=== PATIENT | male | born 1955 | race Caucasian/White ===

== ENCOUNTER 2023-07-19 23:55 | Inpatient (IN) | payer BC, MEDICARE, SELFPAY ==
[2023-07-19 23:57] VITALS: BP 226/137; PULSE 114; RESP 28; TEMP 36.5; O2SAT 92; BMI 29.0
[2023-07-20] VITALS (18 sets, daily range): BP systolic 132–186; BP diastolic 74–106; PULSE 93–120; RESP 16–36; TEMP 36.1–37.1; O2SAT 86–96; BMI 28.2
--- NOTE | 2023-07-20 00:18 | RAD_ITS ---
STUDY: X-RAY CHEST REASON FOR EXAM: Male, 67 years old. cough TECHNIQUE: PA and lateral views of the chest. COMPARISON: None. FINDINGS: Surgical clips along the lower neck. Possible mild emphysematous changes in the mid upper lung armenta, left more than right. Otherwise the lungs are clear and expanded. There is no demonstrated pleural abnormality. Normal size heart. Normal mediastinum and diamond. Normal visualized pulmonary arteries. There is atherosclerotic calcification of the aortic arch with tortuosity. There are diffuse degenerative changes of the visualized thoracic spine. Normal visualized ribs, clavicles, and shoulders. There is no demonstrated abnormality of the visualized soft tissue structures of the upper abdomen. RAD/Chest PA and Lateral IMPRESSION: Possible underlying emphysema, otherwise no acute cardiac pulmonary disease. Electronically Signed: Shelli Mathur MD at 1:04 EST ,
[2023-07-20] MEDS: Albuterol 2.5 MG/3 ML VIAL.NEB. INHALATION (00:28)
[2023-07-20] MEDS: Ipratropium/Albuterol Sulfate 3 ML AMPUL.NEB INHALATION ×6 (00:28→23:21)
[2023-07-20 00:33] LABS: Absolute Lymphocyte Count 0.93 X10^3/uL (0.83-4.51); Absolute Neutrophil Count 8.6 X10^3/uL (2.0-7.7); Basophil# 0.11 X10^3/uL; Eosinophil# 0.66 X10^3/uL; Eosinophils% 5.9 % (0-5); Hematocrit 50.3 % (40-54); Hemoglobin 15.8 g/dL (13.0-16.5); Lymphocyte # 0.93 X10^3/ul (0.83-4.51); Lymphocyte % 8.3 % (19-41); Mean Corp Hgb Conc 31.4 g/dL (32-36); Mean Corpuscular Hgb 28.8 pg (27.0-32.0); Mean Corpuscular Volume 91.8 fL (80-94); Monocyte# 0.95 X10^3/uL; Monocyte% 8.4 % (0-10); NRBC Flagged by Analyzer 0 % (0-5); Neutrophil # 8.56 X10^3/uL (2.7-7.7); Platelet Count 268 K/mm3 (150-450); RBC Distribution Width CV 12.6 % (11.6-14.6); RBC Distribution Width SD 42.5 fl (35.1-43.9); Red Blood Count 5.48 M/mm3 (4.6-6.2); White Blood Count 11.3 K/mm3 (4.4-11.0)
[2023-07-20] MEDS: MethylPREDNISolone 125 MG/2 ML Vial IV (00:40)
[2023-07-20 00:47] LABS: Anion Gap 2 (5-15); BUN 18 mg/dL (7-18); BUN/Creat Ratio 21.1 RATIO (10-20); Calcium,Total 9.7 mg/dL (8.5-10.1); Chloride 112 mmol/L (98-107); Creatinine, Serum 0.85 mg/dL (0.70-1.30); EST Glomerular Filtration Rate 95 mL/min (>60); Est Glom Filt Rate - Afr Amer 115 mL/min (>60); Glucose 109 mg/dL (74-106); Magnesium 2.4 mg/dL (1.6-2.6); Potassium 3.9 mmol/L (3.5-5.1); Sodium Level 144 mmol/L (136-145)
--- NOTE | 2023-07-20 00:52 | CPS ---
x1 Albuterol given to pt. in ER as well
[2023-07-20 00:55] LABS: BNP,B-Type NATRIURETIC PEPTIDE 21.2 pg/mL (0-100)
[2023-07-20] MEDS: Labetalol (Prefilled) 20 MG/4 ML 10 MG IV ×2 (01:28→03:37)
[2023-07-20] MEDS: 0.9% Normal Saline (1000mL) 1,000 ML 999 ML IV (01:30)
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
[2023-07-20] MEDS: Oseltamivir Phosphate 75 MG Capsule PO ×3 (02:44→21:40)
--- NOTE | 2023-07-20 03:27 | HP.PCM.HOS_ITS ---
[facility] - General General Date of Admission: 07/20/23 Date of Service: 07/20/23 Chief Complaint: 1 week symptoms of shortness of breath, cough and wheezing. HPI Narrative CHARLES OWENS, is a 67 M with history of COPD came to ED with shortness of breath and hypoxia. He stated that he started with short of breath initially dyspnea on exertion about 7 days ago and then progressed to dyspnea at rest for last 3 to 4 days. Patient is coughing clear phlegm thick in consistency along with pleuritic chest pain bilaterally predominantly on coughing. Patient also has wheezing. He states he has history of COPD and is on albuterol inhaler but not on maintenance inhaler or oxygen or BiPAP/CPAP. In ED was tested positive for influenza A. Chest x-ray individually reviewed and shows no acute infiltrate/consolidation but underlying emphysema. In ED, patient was tachycardic heart rate in 120s blood pressure high systolic 226/137, tachypneic and hypoxic 89% on room air and required 2 L of oxygen. Patient given labetalol, Tamiflu, IV Solu-Medrol, DuoNeb and further admitted [facility] Home Medications albuterol sulfate 90 mcg/actuation aerosol inhaler 2 puff inhalation Q4H PRN wh eezing or sob 07/20/23 [History Last Taken Unknown] amlodipine 5 mg tablet 5 mg PO DAILY 07/20/23 [History Last Taken Unknown] fenofibrate nanocrystallized 145 mg tablet 145 mg PO DAILY 07/20/23 [History Last Taken Unknown] lisinopril 20 mg tablet 20 mg PO DAILY 07/20/23 [History Last Taken Unknown] metoprolol succinate 50 mg tablet,extended release 24 hr 50 mg PO DAILY 07/20/23 [History Last Taken Unknown] Allergy/AdvReac Type Severity Reaction Status Date / Time Penicillins Allergy Severe Anaphylaxis Verified 07/19/23 23:57 Social History Smoking Status: Former smoker ROS ROS Narrative Constitutional: Reports fatigue and weakness. Subjective fever and chills. HEENT: History of throat cancer status post muscular graft/flap. Reports systems reviewed and no addt'l complaints, except as documented Respiratory/Chest: Bilateral wheezing at rest as described in HPI CVS: Pleuritic chest pain bilaterally feels chest tightness Gastrointestinal: Denies coffee ground emesis, hematemesis or vomiting Genitourinary: Denies burning urination or new urinary tract symptoms Musculoskeletal: Denies acute joint pain or limited range of motion. No acute injury Neurologic: Denies seizure-like symptoms. skin: No ulcer. No rash Endocrinology: Reports systems reviewed and no addt'l complaints, except as documented Hematologic/Lymphatic: Reports systems reviewed and no addt'l complaints, except as documented Rest 14 ROS are negative except as mentioned in HPI Vital Signs Vital Signs Vital Signs: 07/19/23 23:57 07/20/23 00:44 07/20/23 00:47 Temperature 97.7 F L Temperature Source Temporal Pulse Rate 114 H Respiratory Rate 28 H Respiratory Effort Short of Breath Short of Breath Respiratory Depth Shallow Respiratory Pattern Tachypnea Blood Pressure 226/137 H Blood Pressure Mean 166 Pulse Ox 92 Oxygen Delivery Method Room Air Room Air Oxygen Flow Rate (L/min) 07/20/23 00:28 07/20/23 01:31 07/20/23 01:31 Temperature 97.7 F L 97.7 F L Temperature Source Oral Oral Pulse Rate 120 H 100 95 Respiratory Rate 22 H 29 H 30 H Respiratory Effort Respiratory Depth Respiratory Pattern Tachypnea Blood Pressure 172/106 H 172/106 H Blood Pressure Mean 128 128 Pulse Ox 89 89 Oxygen Delivery Method Room Air Room Air Oxygen Flow Rate (L/min) 07/20/23 01:34 07/20/23 02:19 07/20/23 02:19 Temperature 97.7 F L 97.7 F L Temperature Source Temporal Temporal Pulse Rate 103 H 103 H Respiratory Rate 36 H 28 H Respiratory Effort Respiratory Depth Respiratory Pattern Blood Pressure 186/103 H 186/103 H Blood Pressure Mean 130 130 Pulse Ox 93 96 96 Oxygen Delivery Method Nasal Cannula Nasal Cannula Nasal Cannula Oxygen Flow Rate (L/min) 2 2 2 07/20/23 02:34 Temperature 97.7 F L Temperature Source Pulse Rate 103 H Respiratory Rate 26 H Respiratory Effort Respiratory Depth Respiratory Pattern Blood Pressure 186/103 H Blood Pressure Mean 130 Pulse Ox 96 Oxygen Delivery Method Oxygen Flow Rate (L/min) Weight Weight: 220 lb Body Mass Index (BMI) 29.0 Physical Exam Narrative General: Alert, Oriented x3, Cooperative HEENT: Atraumatic, PERRLA, EOMI, Normocephalic Oral: Muscular flap graft on left lateral buccal cavity/tongue. No acute finding. Neck: Supple, No JVD, Negative Carotid Bruits Chest wall/Lungs: Air entry severely diminished bilaterally. Bilateral wheezing. Tachypnea and hypoxia. MCKINLEY present Cardiovascular: Sinus tachycardia, Normal S1, Normal S2, No M/G/R Abdomen: Bowel Sounds Present, Soft, Non Tender, Non-Distended : No dysuria. No renal angle tenderness. No suprapubic tenderness. Extremities: No edema, Capillary Refill Less than 3 Seconds Skin: No rashes, No breakdown Musculoskeletal: No Tenderness to Palpation of Joints or Extremities Neurological: Cranial nerves II-XII grossly intact, DTR 2+/4. No acute focal neurological deficit. Psych/Mental Status: Normal Affect, Appropriate. Results Lab / Micro Data 07/20/23 00:07 07/20/23 00:07 Labs: Laboratory Results - last 24 hr 07/20/23 00:07: WBC 11.3 H, RBC 5.48, Hgb 15.8, Hct 50.3, MCV 91.8, MCH 28.8, MCHC 31.4 L, RDW Std Deviation 42.5, RDW Coeff of Eva 12.6, Plt Count 268, MPV 9.0, Immature Gran % (Auto) 0.400, Neut % (Auto) 76.0 H, Lymph % (Auto) 8.3 L, [place] % (Auto) 8.4, Eos % (Auto) 5.9 H, Baso % (Auto) 1.0, Absolute Neuts (auto) 8.6 H, Absolute Lymphs (auto) 0.93, Nucleated RBC % 0, Sodium 144, Potassium 3.9, Chloride 112 H, Carbon Dioxide 30.0, Anion Gap 2 L, BUN 18, Creatinine 0.85, Estim Creat Clear Calc 104.80, Est GFR (MDRD) Af Amer 115, Est GFR (MDRD) Non-Af 95, BUN/Creatinine Ratio 21.1 H, Glucose 109 H, Calcium 9.7, Magnesium 2.4, B-Natriuretic Peptide 21.2 Micro: Microbiology 07/20/23 00:45 Mucosa - Nose SARS-CoV-2, Influenza & RSV (PCR) - Final Influenzae A Imaging Radiology Impression Chest X-Ray 07/20/23 00:18 IMPRESSION: Possible underlying emphysema, otherwise no acute cardiac pulmonary disease. Electronically Signed: Shelli Mathur MD at 1:04 EST , Assessment & Plan Assessment/Plan (1) COPD exacerbation: (2) Influenza A: PLAN: Plan This is 67-year-old gentleman being admitted for fever, shortness of breath, dyspnea, hypoxia and tachypnea consistent with COPD exacerbation secondary to influenza A 1. COPD exacerbation due to influenza A bronchitis: Patient is being admitted on [facility] floor as an observation status. Mild hypoxia on 2 L of oxygen. Patient is being managed on scheduled bronchodilator, IV Solu-Medrol, Mucinex, incentive spirometry and Pep. Started on Tamiflu in ED and continued. Zithromax oral. Patient is planned for medication in 2 days 2. Hypertensive urgency: BP was 226/136. Heart rate 114. IV hydralazine 10 mg as needed ordered. Patient on lisinopril 20 mg daily, increase to 40 mg daily and metoprolol succinate 50 mg daily, amlodipine 5 mg daily, continued. Denies history of CAD or DE. 2 serial troponins ordered to rule out DE. Twelve-lead EKG ordered. 3. Dyslipidemia: Patient on fenofibrate continued. 4. History of throat cancer status post muscular flap on left lateral buccal and tongue area: Patient denies any aspiration. He is not on any chemotherapy. Former smoker. DVT prophylaxis high risk: Lovenox 40 mg subcu daily. Living will/advanced directive/end of life care: Patient does not have living will or advanced directive. His is power of assistant district attorney for health. After discussion of benefits/risks procedures involved with full code, DNR CC arrest and DNR CC, the patient opted that he was told that he cannot get intubation because of throat cancer and muscular flap. Patient and his send he wants CPR but no intubation or ventilator but I tried to convince that this is not the option as CPR goes along with intubation or ventilator and possible options are full code, DNR CC arrest with intubation or without intubation and DNR CC. They understood and opted for full code. Patient does want artificial life support including intubation, tube feed, ventilator and/chest compression, central venous catheter, vasopressor and DC shock if needed Total time spent in [id number] encounter in discussion of advanced directive 17 minutes. Microbiology Past 72 Hours 07/20/23 00:45 Mucosa - Nose SARS-CoV-2, Influenza & RSV (PCR) - Final Influenzae A Laboratory Results 07/20/23 00:07: WBC 11.3 H, RBC 5.48, Hgb 15.8, Hct 50.3, MCV 91.8, MCH 28.8, MCHC 31.4 L, RDW Std Deviation 42.5, RDW Coeff of Eva 12.6, Plt Count 268, MPV 9.0, Immature Gran % (Auto) 0.400, Neut % (Auto) 76.0 H, Lymph % (Auto) 8.3 L, [place] % (Auto) 8.4, Eos % (Auto) 5.9 H, Baso % (Auto) 1.0, Absolute Neuts (auto) 8.6 H, Absolute Lymphs (auto) 0.93, Nucleated RBC % 0 , Sodium 144, Potassium 3.9, Chloride 112 H, Carbon Dioxide 30.0, Anion Gap 2 L, BUN 18, Creatinine 0.85, Estim Creat Clear Calc 104.80, Est GFR (MDRD) Af Amer 115, Est GFR (MDRD) Non-Af 95, BUN/Creatinine Ratio 21.1 H, Glucose 109 H, Calcium 9.7, Magnesium 2.4, B-Natriuretic Peptide 21.2 Charges/Coding Visit Charges Inpatient E&M: 47897 Init Hosp L3 Procedures Hospitalists Procedures: 62121 Advncd Care Plan 30 Min
[2023-07-20 04:32] LABS: Absolute Lymphocyte Count 0.28 X10^3/uL (0.83-4.51); Absolute Neutrophil Count 12.7 X10^3/uL (2.0-7.7); Basophil# 0.08 X10^3/uL; Basophil% 0.6 % (0-1); Eosinophil# 0.05 X10^3/uL; Eosinophils% 0.4 % (0-5); Hematocrit 47.5 % (40-54); Lymphocyte # 0.28 X10^3/ul (0.83-4.51); Lymphocyte % 2.1 % (19-41); Mean Corp Hgb Conc 31.6 g/dL (32-36); Mean Corpuscular Hgb 28.8 pg (27.0-32.0); Mean Corpuscular Volume 91.3 fL (80-94); Mean Platelet Vol. 8.7 fl (6.2-12.0); Monocyte# 0.18 X10^3/uL; Monocyte% 1.3 % (0-10); NRBC Flagged by Analyzer 0 % (0-5); Neutrophil % 95.1 % (47-70); POSITIVE DIFFERENTIAL YES; Platelet Count 240 K/mm3 (150-450); RBC Distribution Width CV 12.7 % (11.6-14.6); White Blood Count 13.4 K/mm3 (4.4-11.0)
[2023-07-20] MEDS: guaiFENesin/D-Methorphan TAB.SR.12H 1 TABLET PO ×3 (04:55→21:39)
[2023-07-20 05:03] LABS: Anion Gap 3 (5-15); BUN 17 mg/dL (7-18); Calcium,Total 9.1 mg/dL (8.5-10.1); Chloride 109 mmol/L (98-107); Creatinine, Serum 0.81 mg/dL (0.70-1.30); EST Glomerular Filtration Rate 101 mL/min (>60); Est Glom Filt Rate - Afr Amer 122 mL/min (>60); Estimated Creatinine Clearance 108.59 ml/min; Glucose 154 mg/dL (74-106); Sodium Level 139 mmol/L (136-145)
[2023-07-20 05:07] LABS: Troponin-I HS 12 pg/mL (3.0-78.0)
[2023-07-20] MEDS: 0.9% Saline Lock 10 ML Syringe IV (05:19)
--- NOTE | 2023-07-20 07:22 | PN.HOSP_ITS ---
Hospitalist Note The patient is a 67 y/o M w/ PMHx: Former tobacco use, COPD, HTN, HLD who presents to the [facility] ED on 07/20/23 with history of dyspnea, worse with exertion as well as at rest with onset of coughing with a clear thick phlegm and pleuritic chest discomfort bilaterally worse with coughing with wheezing not improving prompting eventual ED evaluation. Workup in the ED included CBC with a BC 11.3, human 15.8, platelet 268 with left shift, BMP with glucose 109 otherwise not marked appearing, magnesium 2.4, BNP 21.2, rapid SARS COVID/influenza/RSV PCR with positive influenza A, chest x-ray with emphysematous changes with otherwise no acute cardiopulmonary findings. In the ED patient ministered IV fluids, Tamiflu initiated, administered Solu-Medrol 125 mg IV x 1 as well as DuoNeb therapies. Repeat labs 07/20/2023 with CBC with WC 13.4, and 115, platelet 240 with left shift and lymphopenia, BMP with chloride 109, glucose 154 with repeat troponin pending. Patient notes that since admission he does feel improved with less coughing and less wheezing but still markedly fatigued. Physical Examination: General: Awake, alert, oriented x 3 and cooperative, seated upright in PCU bedside chair, fatigued appearing. Skin: Normal color, normal turgor, no icterus, no cyanosis except occasional staged ecchymoses, abrasion. HEENT: AT/NC, EOMI, PERRLA, mildly dry MM. Lungs: Diminished, greater bases, mildly increased respiratory rate but no distress, occasional end expiratory wheeze but suspect improved from previous. Heart: Regular rate and rhythm; no gallop, rub audible. Abdomen: Soft, NTTP, ND, normal BS. Extremities: No cyanosis, clubbing, or edema. Neurological: Patient awake, alert, oriented as noted, cognitive function intact; pupils equally reactive to light and accommodation, cranial nerves II- XII grossly normal, moving all 4 extremities, no focal deficits, strength improved, moderately to severely globally decreased. Psychiatric: Affect appears flat, fatigued, no acute evidence of depressive or anxiety feelings. #1. Acute Hypoxia secondary to Acute on Chronic COPD exacerbation secondary to acute viral syndrome influenza A: CXR w/ chronic changes. Admitted to PCU, will maintain on oxygen with wean as tolerated to room air, continue ATC duonebs, PRN albuterol, IV methylprednisolone, continue Tamiflu regimen, HOB, IS parameters, currently maintained also on concurrent azithromycin with plan 5 doses initiated upon admission. #2. Hypertension: Continue home regimen including amlodipine, lisinopril, metoprolol, PRN hydralazine. #3. Hyperlipidemia: We will continue patient on fenofibrate regimen. #4. Former tobacco use: Encourage continued tobacco cessation. #5. DVT prophylaxis: Lovenox. #6. CODE STATUS: Full code. Procedures Hospitalists Procedures: Other Procedure - See Report ([id number]=Iunjdk to bill, admitted same day.)
[2023-07-20 08:00] LABS: Troponin-I HS 12 pg/mL (3.0-78.0)
[2023-07-20] MEDS: Aspirin 81 MG TAB.CHEW 162 MG PO (09:40)
[2023-07-20] MEDS: Enoxaparin 40 MG/0.4 ML Syringe SC (09:40)
[2023-07-20] MEDS: amLODIPine 5 MG Tablet PO (09:41)
[2023-07-20] MEDS: Metoprolol(XL)Succ 50 MG Tablet PO (09:41)
[2023-07-20] MEDS: Fenofibrate 145 MG Tablet PO (09:41)
[2023-07-20] MEDS: Azithromycin 250 MG Tablet 500 MG PO (09:42)
[2023-07-20] MEDS: Lisinopril 40 MG Tablet PO (09:42)
[2023-07-20 11:03] LABS: Troponin-I HS 11 pg/mL (3.0-78.0)
[2023-07-21] MEDS: Ipratropium/Albuterol Sulfate 3 ML AMPUL.NEB INHALATION ×2 (03:10→07:13)
[2023-07-21 03:11] VITALS: PULSE 90; RESP 18
[2023-07-21 05:46] VITALS: BP 120/105; PULSE 85; RESP 16; TEMP 36.4; O2SAT 95
[2023-07-21 06:17] VITALS: O2SAT 92
--- NOTE | 2023-07-21 06:17 | PN.HOSP_ITS ---
Reason for Visit Reason for Visit: Diagnoses Influenza due to other identified influenza virus with other respiratory manife stations (07/20/23) Chronic obstructive pulmonary disease with (acute) exacerbation (07/20/23) Objective Data Objective Data Vital Signs: Vital Signs Temp Pulse Resp BP Pulse Ox O2 Del Method O2 Flow Rate 97.5 F L 85 16 120/105 H 95 Room Air 2 07/21/23 05:46 07/21/23 05:46 07/21/23 05:46 07/21/23 05:46 07/21/23 05:46 07/21/23 06:00 07/20/23 23:23 Oxygen Flow Rate (L/min) 2 Oxygen Delivery Method Room Air Weight: 213 lb 14.4 oz Body Mass Index (BMI) 28.2 Intake & Output: Intake and Output for Last 24 Hours 07/19/23 07/20/23 07/21/23 23:59 23:59 23:59 Intake Total 1000 / 1000 Balance 1000 / 1000 Lab / Micro Data 07/20/23 04:24 07/20/23 04:24 Labs: Laboratory Results - last 24 hr 07/20/23 06:35: Troponin I High Sens 12 07/20/23 10:05: Troponin I High Sens 11 Micro: Microbiology 07/20/23 00:45 Mucosa - Nose SARS-CoV-2, Influenza & RSV (PCR) - Final Influenzae A Physical Exam Narrative Physical Examination: General: Awake, alert, oriented x 3 and cooperative, seated upright in PCU b edside chair, fatigued appearing. Skin: Normal color, normal turgor, no icterus, no cyanosis except occasional staged ecchymoses, abrasion. HEENT: AT/NC, EOMI, PERRLA, mildly dry MM. Lungs: Diminished, greater bases, mildly increased respiratory rate but no distress, occasional end expiratory wheeze but suspect improved from previous. Heart: Regular rate and rhythm; no gallop, rub audible. Abdomen: Soft, NTTP, ND, normal BS. Extremities: No cyanosis, clubbing, or edema. Neurological: Patient awake, alert, oriented as noted, cognitive function intact; pupils equally reactive to light and accommodation, cranial nerves II- XII grossly normal, moving all 4 extremities, no focal deficits, strength improved, moderately to severely globally decreased. Psychiatric: Affect appears flat, fatigued, no acute evidence of depressive or anxiety feelings. Assessment & Plan Assessment/Plan PLAN: Plan The patient is a 67 y/o M w/ PMHx: Former tobacco use, COPD, HTN, HLD who presents to the [facility] ED on 07/20/23 with history of dyspnea, worse with exertion as well as at rest with onset of coughing with a clear thick phlegm and pleuritic chest discomfort bilaterally worse with coughing with wheezing not improving prompting eventual ED evaluation. #1. Acute Hypoxia secondary to Acute on Chronic COPD exacerbation secondary to acute viral syndrome influenza A: CXR w/ chronic changes. Admitted to PCU, will maintain on oxygen with wean as tolerated to room air, continue ATC duonebs, PRN albuterol, IV methylprednisolone, continue Tamiflu regimen, HOB, IS parameters, currently maintained also on concurrent azithromycin with plan 5 doses initiated upon admission. #2. Hypertension: Continue home regimen including amlodipine, lisinopril, metoprolol, PRN hydralazine. #3. Hyperlipidemia: We will continue patient on fenofibrate regimen. #4. Former tobacco use: Encourage continued tobacco cessation. #5. DVT prophylaxis: Lovenox. #6. CODE STATUS: Full code.
--- NOTE | 2023-07-21 06:33 | PCM.DC.SUM ---
Providers Date of Admission: 07/20/23 Primary Care Physician: SEVERIANO James Reason For Visit: INFLUENZA A WITH HYPOXIA Diagnosis Discharge Diagnosis (1) COPD exacerbation: Status: Chronic Code(s): J44.1 - Chronic obstructive pulmonary disease with (acute) exacerbation (2) Influenza A: Status: Acute Code(s): J10.1 - Influenza due to other identified influenza virus with other respiratory manifestations Plan: DISCHARGE DIAGNOSES: #1. Acute Hypoxia secondary to Acute on Chronic COPD exacerbation secondary to acute viral syndrome influenza A #2. Hypertension #3. Hyperlipidemia #4. Former tobacco use Medications at Discharge Home Medications albuterol sulfate 90 mcg/actuation aerosol inhaler 2 puff inhalation Q4H PRN wheezing or sob 07/20/23 amlodipine 5 mg tablet 5 mg PO DAILY 07/20/23 fenofibrate nanocrystallized 145 mg tablet 145 mg PO DAILY 07/20/23 lisinopril 20 mg tablet 20 mg PO DAILY 07/20/23 metoprolol succinate 50 mg tablet,extended release 24 hr 50 mg PO DAILY 07/20/23 albuterol sulfate 0.63 mg/3 mL solution for nebulization 0.63 mg (3 mL) inhalation Q4H PRN shortness of breath or wheezing #90 mL 07/21/23 azithromycin 250 mg tablet 500 mg (2 x 250 mg) PO Q24 3 days #6 tabs 07/21/23 dextromethorphan-guaifenesin 30 mg-600 mg tablet extended [id number] hr (Mucinex DM) 1 tab PO BID 10 days #20 tabs 07/21/23 ipratropium 0.5 mg-albuterol 3 mg (2.5 mg base)/3 mL nebulization soln 3 ml inhalation Q6H COPD exac w/ Influenza A 14 days #180 mL 07/21/23 nebulizer and compressor #1 ea 07/21/23 oseltamivir 75 mg capsule 75 mg PO BID Influenza 3 days #6 caps 07/21/23 prednisone 10 mg tablet See Rx Instructions .Route .COMPLEX #30 tabs 07/21/23 Hospital Course Operations None Procedures EKG Summary of Care Provided Minutes Spent on Discharge: 35 Hospital Course: The patient is a 67 y/o M w/ PMHx: Former tobacco use, COPD, HTN, HLD who presented to the [facility] ED on 07/20/23 with history of dyspnea, worse with exertion as well as at rest with onset of coughing with a clear thick phlegm and pleuritic chest discomfort bilaterally worse with coughing with wheezing not improving prompting eventual ED evaluation. ED evaluation with evidence COPD with + influenza A on viral testing. CXR w/ chronic changes. Admitted to PCU, maintained on oxygen with wean as tolerated to room air, continued ATC duonebs, PRN albuterol, IV methylprednisolone, continued Tamiflu regimen, HOB, IS parameters, maintained also on concurrent azithromycin with plan 5 doses initiated upon admission. Patient clinically improved and requested discharge. Discharged to home on prednisone taper, completion of tamiflu, completion of azithromycin, requested nebulizer with albuterol and duoneb therapies with PCP follow-up requested within 3-5 days to review admission. DAY OF DISCHARGE PROGRESS NOTE: Subjective: Patient without acute event overnight per self and nursing report. Patient denies fever, chills, nausea, emesis, abdominal pain, chest pain or dyspnea. Patient agreeable to discharge to home. Patient will be discharged with follow-up with primary care physician within 3-5 days. Objective: T97.5, heart rate 85, BP 124 105, respiratory rate 16, 95% on room air. Physical Examination: General: Awake, alert, oriented x 3 and cooperative, seated upright in PCU bedside chair, improved appearance. Skin: Normal color, normal turgor, no icterus, no cyanosis except occasional staged ecchymoses, abrasion. HEENT: AT/NC, EOMI, PERRLA, mildly dry MM. Lungs: Diminished, greater bases, appropriate effort, no evidence of any distress, no current wheezing. Heart: Regular rate and rhythm; no gallop, rub audible. Abdomen: Soft, NTTP, ND, normal BS. Extremities: No cyanosis, clubbing, or edema. Neurological: Patient awake, alert, oriented as noted, cognitive function intact; pupils equally reactive to light and accommodation, cranial nerves II-XII grossly normal, moving all 4 extremities, no focal deficits, strength improved, mildly globally decreased. Psychiatric: Affect appears normal, no acute evidence of depressive or anxiety feelings. Assessment and Plan: Please see hospital summary above. Weight / BMI Weight Weight: 213 lb 14.4 oz Body Mass Index (BMI) 28.2 ABG / Lab / Microbiology Data 07/21/23 07:20 07/21/23 07:20 Laboratory: Laboratory Results - last 24 hr 07/20/23 06:35: Troponin I High Sens 12 07/20/23 10:05: Troponin I High Sens 11 Microbiology: Microbiology 07/20/23 00:45 Mucosa - Nose SARS-CoV-2, Influenza & RSV (PCR) - Final Influenzae A D/C Instructions Discharge Diet: Low fat / Low cholesterol May resume sexual activity in: 10-14 days Weight Bearing Status: Weight bearing as tolerated Call your doctor if you observe: Fever of 101 or Higher, Numbness or Tingling, Shortness of breath, Dizziness, Fainting spells, Chest pain, Increased palpitations (irregular heartbeat), Calf discomfort and Uncontrolled pain Meaningful Use Info Meaningful Use Diagnoses (Choose all that apply): None applicable Discharge Plan Admission Admit Date/Time: 07/20/23 11:56 Primary Reason for Your Visit: Hypoxia, COPD Exacerbation, Influenza A Viral Syndrome Attending Provider: Shira Chavez Primary Care Provider: Jaiden Mg Consulting Providers: Ricardo Beltran Instructions Patient Instructions: ED COPD Flare, ED Influenza (Adult) Additional Instructions / Restrictions: ADDITIONAL DISCHARGE INFORMATION/INSTRUCTIONS: --Upon discharge you have been transition to an oral steroid taper as well as Tamiflu regimen, albuterol and DuoNeb therapies in addition to completion regimen of azithromycin antibiotic. Please complete this regimen and assure follow-up with your primary care physician. Discharge Orders/Prescriptions Prescriptions: New Mucinex DM 30-600 mg Tablet Extended Release 12 Hr 1 tab PO BID 10 Days Qty: 20 0RF oseltamivir 75 mg Capsule 75 mg PO BID 3 Days Qty: 6 0RF prednisone 10 mg tablet See Rx Instructions .ROUTE .COMPLEX Qty: 30 0RF Taper: Prednisone Taper 40 mg WITH BREAKFAST for 3 Days and 0 Hour 30 mg WITH BREAKFAST for 3 Days and 0 Hour 20 mg WITH BREAKFAST for 3 Days and 0 Hour 10 mg WITH BREAKFAST for 3 Days and 0 Hour Rx Instructions: See Taper orally ;10 mg orally ipratropium-albuterol 0.5 mg-3 mg(2.5 mg base)/3 mL Solution For Nebulization 3 ml inhalation Q6H 14 Days Qty: 180 0RF azithromycin 250 mg Tablet 500 mg PO Q24 3 Days Qty: 6 0RF albuterol sulfate 0.63 mg/3 mL solution for nebulization 0.63 mg inhalation Q4H PRN (Reason: shortness of breath or wheezing) Qty: 90 0RF (DME) nebulizer and compressor Device See Rx Instructions .Route Qty: 1 0RF Rx Instructions: As directed per aerosol scripts Continued albuterol sulfate 90 mcg/actuation HFA aerosol inhaler 2 puff INHALATION Q4H PRN (Reason: wheezing or sob) Patient Comments: INHALE 2 PUFFS BY MOUTH EVERY 4 HOURS NEEDED FOR WHEEZING OR SHORTNESS OF BREATH amlodipine 5 mg tablet 5 mg PO DAILY Patient Comments: TAKE 1 TABLET BY MOUTH EVERY DAY fenofibrate nanocrystallized 145 mg tablet 145 mg PO DAILY Patient Comments: TAKE 1 TABLET BY MOUTH EVERY DAY lisinopril 20 mg tablet 20 mg PO DAILY Patient Comments: TAKE 1 TABLET BY MOUTH EVERY DAY metoprolol succinate 50 mg tablet extended release 24 hr 50 mg PO DAILY Patient Comments: TAKE 1 TABLET BY MOUTH EVERY DAY Referrals / Follow Up: Jaiden Mg PA [Primary Care Provider] - (Follow-up within 3-5 days to review admission.) Disposition Disposition (needs filled in before D/C Order can be placed): Home Health Service Charges/Coding Visit Charges Inpatient E&M: 00865 Disch Hosp >30min
[2023-07-21 07:13] VITALS: PULSE 78; RESP 16; O2SAT 99
[2023-07-21 08:14] LABS: Absolute Lymphocyte Count 0.56 X10^3/uL (0.83-4.51); Absolute Neutrophil Count 13.2 X10^3/uL (2.0-7.7); Basophil# 0.02 X10^3/uL; Basophil% 0.1 % (0-1); Hematocrit 46.5 % (40-54); Hemoglobin 14.6 g/dL (13.0-16.5); Lymphocyte # 0.56 X10^3/ul (0.83-4.51); Lymphocyte % 3.8 % (19-41); Mean Corp Hgb Conc 31.4 g/dL (32-36); Mean Corpuscular Hgb 28.9 pg (27.0-32.0); Mean Corpuscular Volume 92.1 fL (80-94); Mean Platelet Vol. 9.3 fl (6.2-12.0); Monocyte# 0.78 X10^3/uL; Monocyte% 5.3 % (0-10); NRBC Flagged by Analyzer 0 % (0-5); Neutrophil # 13.16 X10^3/uL (2.7-7.7); Neutrophil % 90.2 % (47-70); POSITIVE DIFFERENTIAL YES; Platelet Count 265 K/mm3 (150-450); RBC Distribution Width CV 13.1 % (11.6-14.6); RBC Distribution Width SD 44.1 fl (35.1-43.9); Red Blood Count 5.05 M/mm3 (4.6-6.2); White Blood Count 14.6 K/mm3 (4.4-11.0)
[2023-07-21 08:20] VITALS: BP 120/105; PULSE 85
[2023-07-21] MEDS: guaiFENesin/D-Methorphan TAB.SR.12H 1 TABLET PO (08:20)
[2023-07-21] MEDS: Fenofibrate 145 MG Tablet PO (08:20)
[2023-07-21] MEDS: Metoprolol(XL)Succ 50 MG Tablet PO (08:20)
[2023-07-21] MEDS: amLODIPine 5 MG Tablet PO (08:21)
[2023-07-21] MEDS: Azithromycin 250 MG Tablet 500 MG PO (08:21)
[2023-07-21] MEDS: Lisinopril 40 MG Tablet PO (08:21)
[2023-07-21 08:39] LABS: ALB/GLOB Ratio 0.8 RATIO (0.9-2.4); AST(SGOT) 25 U/L (15-37); Alanine Aminotransfer ALT/SGPT 19 U/L (16-61); Albumin, Serum 3.3 g/dL (3.2-5.0); Alkaline Phosphatase 55 U/L (45-117); Anion Gap 3 (5-15); BUN 24 mg/dL (7-18); BUN/Creat Ratio 26.6 RATIO (10-20); Calcium,Total 9.4 mg/dL (8.5-10.1); Chloride 113 mmol/L (98-107); EST Glomerular Filtration Rate 89 mL/min (>60); Est Glom Filt Rate - Afr Amer 108 mL/min (>60); Estimated Creatinine Clearance 97.73 ml/min; Globulin 4.2 g/dL (2.2-4.2); Glucose 181 mg/dL (74-106); Potassium 4.1 mmol/L (3.5-5.1); Protein, Total 7.5 g/dL (6.4-8.2); Sodium Level 141 mmol/L (136-145)
[2023-07-21 09:05] VITALS: O2SAT 92; O2SAT 93
--- NOTE | 2023-07-21 09:09 | CASEMGMT ---
RUEL FAUST Discharge Planning Assessment: Face to Face with patient for initial transition planning/care coordination assessment.? RUEL FAUST introduced self and role at [facility], voices understanding and agreeable to participating in assessment. Pt alert, sitting up in chair, and answering questions appropriately.?Care providers, pharmacy,?and demographics verified. ? Admitting Dx: Influenza A, COPD LACE stratification: 1 Preferred Pharmacy: [facility] Insurance: [employer] A Prescription Benefit:?yes LNOK: spouse Elizabeth Living Arrangements: Pt resides with his . Pt states he is independent at baseline, works at [employer] and is currently building a porch on his home. DME: has a nebulizer, no home O2. ? Pt's goal/Plan: Home with support of his . Pt denies any discharge needs or concerns at this time. Beverly Ray RN AC
== END 2023-07-21 10:14 | disposition home health service (06) | DRG 192 ==
LOC: ED 07-20 02:31 → MS3 07-20 02:59 → PCU 07-20 03:55
PROVIDERS: Admitting Provider Internal Medicine; Emergency Provider Emergency Medicine; PCP Physician Assistant; Visit Provider Family Medicine
DX: J44.1 Chronic obstructive pulmonary disease with (acute) exacerbation (principal); E78.5 Hyperlipidemia, unspecified; I10 Essential (primary) hypertension; J10.1 Influenza due to other identified influenza virus with other respiratory manifestations; I16.0 Hypertensive urgency; R09.02 Hypoxemia; Z79.899 Other long term (current) drug therapy; Z87.891 Personal history of nicotine dependence
CPT/HCPCS: 36415; 71046; 80048; 80053; 83735; 83880; 84484; 85025; 87631; 93005; 94640; 94668; 99285; J7030; A4216

== ENCOUNTER 2024-09-02 17:40 | Emergency (ER) | payer BC, SELFPAY ==
[2024-09-02 17:42] VITALS: BP 184/90; PULSE 102; RESP 26; TEMP 36.3; O2SAT 95; BMI 29.5
--- NOTE | 2024-09-02 17:47 | EX.ED.VIS.UR ---
HPI HPI - URI History of Present Illness Chief Complaint: Cough Informant: patient Onset/Context/Timing Onset: Weeks (1) Context: Gradual Onset Timing: Continuous Quality: Fatigue Location: Generalized Worsened by: - (Nothing) Relieved by: - (Nothing) Associated Symptoms Associated Symptoms: Positive for Nasal Congestion, Shortness of Breath, Chest Pain and Productive Cough; Negative for Headache, Sinus Pressure, Myalgias, Nausea, Vomiting, Diarrhea, Nonproductive cough or Hemoptysis Narrative Narrative: Patient presents with cough and upper respiratory congestion that has been getting worse over the past week. Patient states it has been constant. Patient states he has some tightness in his chest. Patient admits to some shortness of breath. Patient states he is coughing up some green sputum. Patient admits to some subjective chills and rhinorrhea. Patient denies any fevers. Patient states he has been feeling fatigued over the past week. ROS ROS ED Constitutional Constitutional ED: Reports chills and subjective; Denies fever(s) Eyes Eyes: Reports blurry vision; Denies change in vision ENT ENT ED: Reports rhinorrhea; Denies sore throat Cardiovascular Cardiovascular: Reports chest pain; Denies palpitations Respiratory/Chest Respiratory/Chest: Reports cough and dyspnea Gastrointestinal Gastrointestinal: Denies nausea or vomiting Genitourinary Genitourinary ED: Denies dysuria or hematuria Musculoskeletal Musculoskeletal: Reports back pain; Denies neck pain Integumentary Denies abscess or rash Neurologic Neurologic: Denies headache(s) or weakness Allergic/Immunologic Allergic/Immunologic ED: Denies mouth swelling or urticaria [facility] Medical History (Updated 09/02/24 @ 19:[address] Jose R Alanis, DO) History of throat cancer COPD (chronic obstructive pulmonary disease) Home Medications ?Medication ?Instructions ?Recorded ?Last Taken ?Type albuterol sulfate 90 mcg/actuation 2 puff inhalation Q4H PRN wheezing 07/20/23 Unknown History aerosol inhaler or sob amlodipine 5 mg tablet 5 mg PO DAILY 07/20/23 Unknown History fenofibrate nanocrystallized 145 145 mg PO DAILY 07/20/23 Unknown History mg tablet lisinopril 20 mg tablet 20 mg PO DAILY 07/20/23 Unknown History metoprolol succinate 50 mg 50 mg PO DAILY 07/20/23 Unknown History tablet,extended release 24 hr albuterol sulfate 0.63 mg/3 mL 0.63 mg (3 mL) inhalation Q4H PRN 07/21/23 Unknown Rx solution for nebulization shortness of breath or wheezing #90 mL azithromycin 250 mg tablet 500 mg (2 x 250 mg) PO Q24 3 days 07/21/23 Unknown Rx #6 tabs dextromethorphan-guaifenesin 30 1 tab PO BID 10 days #20 tabs 07/21/23 Unknown Rx mg-600 mg tablet extended hr (Mucinex DM) ipratropium 0.5 mg-albuterol 3 mg 3 ml inhalation Q6H COPD exac w/ 07/21/23 Unknown Rx (2.5 mg base)/3 mL nebulization Influenza A 14 days #180 mL soln nebulizer and compressor #1 ea 07/21/23 Unknown Rx oseltamivir 75 mg capsule 75 mg PO BID Influenza 3 days #6 07/21/23 Unknown Rx caps prednisone 10 mg tablet See Rx Instructions .Route 07/21/23 Unknown Rx .COMPLEX #30 tabs Allergy/AdvReac Type Severity Reaction Status Date / Time Penicillins Allergy Severe Anaphylaxis Verified 09/02/24 17:42 Surgical History (Updated 09/02/24 @ 17:[address] Jose R Alanis DO) History of throat surgery Hx of appendectomy Social History Smoking Status: Former smoker EXAM Physical Exam Const Vital Signs: 09/02/24 17:42 09/02/24 17:59 09/02/24 18:12 Temperature 97.4 F L Temperature Source Temporal Pulse Rate 102 H 100 Respiratory Rate 26 H 20 H Respiratory Effort Normal Respiratory Pattern Normal Blood Pressure 184/90 H Blood Pressure Mean 121 Pulse Ox 95 Oxygen Delivery Method Room Air Positive well nourished and well developed General Appearance ED: well developed and NAD HEENT Reports moist mucous membranes Neck supple and no JVD Resp normal respiratory effort Auscultation: wheezes scattered wheezes Cardio Rate: regular rate Rhythm: regular rhythm GI non-tender Palpation: soft Neuro oriented x3, CN's II-XII intact bilaterally and no sensory deficits noted Sensorium / Orientation: alert Motor Exam: strength 5/5 throughout Psych mental status grossly normal MDM MDM MDM Narrative Medical decision making narrative: Differential diagnosis includes COPD exacerbation, pneumonia, viral illness, pneumothorax, and lung cancer. Chest x-ray will be obtained to assess for pneumonia, pneumothorax, and mass. CBC will be obtained to assess for leukocytosis and anemia. Basic metabolic profile will be obtained to assess for electrolyte abnormality and renal function. COVID-19, influenza, RSV PCR will be obtained to assess for viral illness. Lab Data Attestation: I reviewed the patient's lab results. Lab results narrative: CBC was reviewed and was within normal limits. Basic metabolic profile was reviewed and was within normal limits. Labs: Laboratory Results - last 24 hr 09/02/24 18:12 WBC 9.7 RBC 5.27 Hgb 15.6 Hct 48.3 MCV 91.7 MCH 29.6 MCHC 32.3 RDW Std Deviation 42.2 RDW Coeff of Eva 12.5 Plt Count 281 MPV 9.1 Immature Gran % (Auto) 0.800 Neut % (Auto) 72.5 H Lymph % (Auto) 13.1 L Lipscomb % (Auto) 9.9 Eos % (Auto) 3.1 Baso % (Auto) 0.6 Absolute Neuts (auto) 7.0 Absolute Lymphs (auto) 1.27 Nucleated RBC % 0 Sodium 143 Potassium 4.0 Chloride 106 Carbon Dioxide 25.7 Anion Gap 11 BUN 14 Creatinine 0.76 Estim Creat Clear Calc 110.68 Est GFR (MDRD) Non-Af 98 BUN/Creatinine Ratio 17.8 Glucose 109 H Calcium 9.5 Radiography Chest X-Ray - ED: 2 View, Read by ED Physician, Read by Radiologist and No Acute Disease Diagnostic Testing: Clinical Impression(s) from Imaging Studies Chest X-Ray 09/02/24 18:30 IMPRESSION: Hyperinflation. Bronchial thickening suggest bronchitis. No localizing infiltrate. Reading Location: [facility] and lateral chest x-ray was obtained. There are 2 views. On my independent interpretation, lung armenta are hyperinflated. There is bronchial thickening suggesting bronchitis. There is normal cardiac silhouette. Bony thorax is normal. There is no acute process noted. Radiologist also interpreted the x-ray and agrees. Treatment and Re-Evaluation Narrative: Patient was given a DuoNeb aerosol here. Patient had minimal relief with this. Patient was advised of his findings. Patient was advised that this is most likely a viral upper respiratory infection. Patient was instructed to drink plenty of fluids. Patient was instructed to take Tylenol or ibuprofen as needed for pain or fevers. Patient was instructed to follow-up with his primary care physician in 5 to 7 days. Patient understood and was agreeable with the plan. All questions were answered. Discharge Plan Triage Chief Complaint: Cough ED Provider: Jose R Alanis Dx/Rx/DC Orders Clinical Impression: Viral upper respiratory tract infection, COPD (chronic obstructive pulmonary disease) Instructions: ED URI, Viral, No Abx (Adult) Prescriptions: No Action albuterol sulfate 90 mcg/actuation HFA aerosol inhaler 2 puff INHALATION Q4H PRN (Reason: wheezing or sob) Patient Comments: INHALE 2 PUFFS BY MOUTH EVERY 4 HOURS NEEDED FOR WHEEZING OR SHORTNESS OF BREATH amlodipine 5 mg tablet 5 mg PO DAILY Patient Comments: TAKE 1 TABLET BY MOUTH EVERY DAY fenofibrate nanocrystallized 145 mg tablet 145 mg PO DAILY Patient Comments: TAKE 1 TABLET BY MOUTH EVERY DAY lisinopril 20 mg tablet 20 mg PO DAILY Patient Comments: TAKE 1 TABLET BY MOUTH EVERY DAY metoprolol succinate 50 mg tablet extended release 24 hr 50 mg PO DAILY Patient Comments: TAKE 1 TABLET BY MOUTH EVERY DAY Mucinex DM 30-600 mg Tablet Extended Release 12 Hr 1 tab PO BID 10 Days Qty: 20 0RF oseltamivir 75 mg Capsule 75 mg PO BID 3 Days Qty: 6 0RF prednisone 10 mg tablet See Rx Instructions .ROUTE .COMPLEX Qty: 30 0RF Taper: Prednisone Taper 40 mg WITH BREAKFAST for 3 Days and 0 Hour 30 mg WITH BREAKFAST for 3 Days and 0 Hour 20 mg WITH BREAKFAST for 3 Days and 0 Hour 10 mg WITH BREAKFAST for 3 Days and 0 Hour Rx Instructions: See Taper orally ;10 mg orally ipratropium-albuterol 0.5 mg-3 mg(2.5 mg base)/3 mL Solution For Nebulization 3 ml inhalation Q6H 14 Days Qty: 180 0RF azithromycin 250 mg Tablet 500 mg PO Q24 3 Days Qty: 6 0RF albuterol sulfate 0.63 mg/3 mL solution for nebulization 0.63 mg inhalation Q4H PRN (Reason: shortness of breath or wheezing) Qty: 90 0RF (DME) nebulizer and compressor Device See Rx Instructions .Route Qty: 1 0RF Rx Instructions: As directed per aerosol scripts Primary Care Provider: Radha Serna Referrals: Radha Serna, [employer] [Primary Care Provider] - 5-7 Days Print Language: Afghan Disposition Disposition: Home, Self Care
[2024-09-02] MEDS: Ipratropium/Albuterol Sulfate 3 ML AMPUL.NEB INHALATION (18:11)
[2024-09-02 18:12] VITALS: PULSE 100; RESP 20
[2024-09-02 18:22] LABS: Absolute Lymphocyte Count 1.27 X10^3/uL (0.83-4.51); Basophil# 0.06 X10^3/uL; Basophil% 0.6 % (0-1); Eosinophils% 3.1 % (0-5); Hematocrit 48.3 % (40-54); Hemoglobin 15.6 g/dL (13.0-16.5); Lymphocyte # 1.27 X10^3/ul (0.83-4.51); Lymphocyte % 13.1 % (19-41); Mean Corp Hgb Conc 32.3 g/dL (32-36); Mean Corpuscular Hgb 29.6 pg (27.0-32.0); Mean Corpuscular Volume 91.7 fL (80-94); Mean Platelet Vol. 9.1 fl (6.2-12.0); Monocyte# 0.96 X10^3/uL; Monocyte% 9.9 % (0-10); NRBC Flagged by Analyzer 0 % (0-5); Neutrophil # 7.04 X10^3/uL (2.7-7.7); Neutrophil % 72.5 % (47-70); Platelet Count 281 K/mm3 (150-450); RBC Distribution Width CV 12.5 % (11.6-14.6); RBC Distribution Width SD 42.2 fl (35.1-43.9); Red Blood Count 5.27 M/mm3 (4.6-6.2); White Blood Count 9.7 K/mm3 (4.4-11.0)
--- NOTE | 2024-09-02 18:30 | RAD_ITS ---
PROCEDURE: CHEST PA AND LATERAL 09/02/2024 REASON FOR EXAM: COUGH TECHNIQUE: side down decubitus view(s) of the chest COMPARISON: 07/20/2023 FINDINGS: Hyperinflation of the lungs. Bronchial thickening. Features of emphysema. No pneumothorax or pleural effusion. No developing infiltrate. RAD/Chest PA and Lateral IMPRESSION: Hyperinflation. Bronchial thickening suggest bronchitis. No localizing infilt rate. Reading Location: [id number]
[2024-09-02 18:50] LABS: Anion Gap 11 (5-15); BUN 14 mg/dL (4-19); BUN/Creat Ratio 17.8 RATIO (10-20); Calcium,Total 9.5 mg/dL (7.6-11.0); Carbon Dioxide 25.7 mmol/L (21.0-32.0); Chloride 106 mmol/L (98-108); Creatinine, Serum 0.76 mg/dL (0.70-1.20); EST Glomerular Filtration Rate 98 (>60); Estimated Creatinine Clearance 110.68 ml/min (50-250); Glucose 109 mg/dL (70-99); Sodium Level 143 mmol/L (133-145)
[2024-09-02 19:41] VITALS: BP 135/71; PULSE 78; RESP 18; TEMP 36.4; O2SAT 96
== END 2024-09-02 19:42 | disposition home or self-care (01) ==
PROVIDERS: Emergency Provider Emergency Medicine; PCP Clinical Nurse Specialist Adult Health; Visit Provider Emergency Medicine
DX: J06.9 Acute upper respiratory infection, unspecified (principal); J44.9 Chronic obstructive pulmonary disease, unspecified; Z88.0 Allergy status to penicillin; Z85.818 Personal history of malignant neoplasm of other sites of lip, oral cavity, and pharynx; Z87.891 Personal history of nicotine dependence
CPT/HCPCS: 71046; 80048; 85025; 87631; 94640; 99283; A4216